=== PATIENT | male | born 1985 | race Caucasian/White ===

== ENCOUNTER 2023-07-25 01:22 | Inpatient (IN) ==
--- NOTE | 2023-07-25 01:38 | Emergency Department Note ---
Impression & Plan Swallowed foreign body, Elevated bilirubin ED Provider Note NAME: THOMAS [id number] MINNIE AGE: 38 SEX: M : 1985 ARRIVES VIA: Walk-In INFORMANT: Patient ED PROVIDER(S): Mayur Burris DO CHIEF COMPLAINT: swallowed battery HPI: Patient is a 38-year-old male who presents to the ER as he swallowed a e- cigarette battery prior to arrival around 10-11 o'clock tonight. He notes he does this when he is stressed out. He also swallowed several rocks. Denies any headache, change in vision, chest pain, shortness of breath, nausea vomiting or diarrhea. No dysuria, urgency, or frequency. No other exacerbating or remitting factors. Additional history obtained from officers who are present at bedside. ADDITIONAL HISTORY OBTAINED: Additional history obtained from officers who are present at bedside and note that this occurred around 11:00 Chronic Medical/Social Conditions Affecting Care: Per HPI PAST MEDICAL HISTORY:See Below PAST SURGICAL HISTORY:See Below FAMILY HISTORY:See Below SOCIAL HISTORY:See Below HOME MEDICATIONS:See Below ALLERGIES:See Below VITALS:See Below PHYSICAL EXAMINATION: GENERAL: Sitting up in bed, alert, well appearing, well nourished, no distress, non-toxic EYE EXAM: normal conjunctiva. OROPHARYNX: mucous membranes are moist NECK: supple, no nuchal rigidity, no adenopathy, non-tender LUNGS: Clear to auscultation. Normal chest wall mechanics HEART: no murmurs, S1 normal and S2 normal ABDOMEN: abdomen soft, non-tender, normo-active bowel sounds, no masses, no rebound or guarding. UPPER EXTREMITIES: upper extremities are grossly normal. LOWER EXTREMITIES: No pitting edema. NEURO EXAM: Normal sensorium, cranial nerves II-XII grossly intact, normal speech, no gross weakness of arms, no gross weakness of legs. MEDICAL DECISION MAKING: Patient is a 38-year-old male who presents the ER following swallowing a foreign body. IV was established blood work was obtained. Labs show no significant leukocytosis or anemia. BMP is unremarkable. T. bili slightly elevated 1.7. LFTs and lipase was unremarkable. KUB confirms for foreign bodies in the stomach. Discussed with Dr. Adams who recommended admission for EGD in the morning. Discussed with the guards and they were updated and discussed with the hospitalist Dr. Rios for admission. Consults/Care Managements Discussions: Per MDM Triage Nursing notes reviewed. Limited review of prior medical records performed Vital Signs: reviewed and remarkable for no significant abnormalities Differential diagnosis: Differential diagnoses includes but is not limited to gastritis, peptic ulcer disease, GERD, gallbladder disease, pancreatitis, small bowel obstruction, appendicitis, diverticulitis, hernia, urinary tract infection, torsion, perforation, trauma, infectious. ER treatment provided: See below Diagnostics interpreted by me include EKG and cardiac monitoring as listed below: -Cardiac Monitoring: An order was placed for continuous cardiac monitoring. The monitor shows a rate of 70 with sinus rhythm. -ECG: none -Laboratory studies:Interpreted by me as stated above in MDM and shown below. Imaging studies: Xrays: As interpreted by me: KUB per my interpretation shows several foreign bodies in the CTs show: none Procedures:none Critical Care: None Past Med/Surg History Problem List (Updated 07/25/23 @ 03:27 by Mayur Burris DO) Elevated bilirubin (Acute) Suicide attempt (Acute) Swallowed foreign body (Acute) Nasal foreign body (Acute) Social History Smoking Status: Unknown if ever smoked Preferred Language: Burmese Feels Safe at Home: Yes Allergies Allergies Allergy/AdvReac Type Severity Reaction Status Date / Time No Known Allergies Allergy Verified 07/04/23 00:28 Home Meds Home Medications Medication Instructions Recorded Confirmed Stelazine 1 dose PO UD 07/25/23 07/25/23 docusate sodium 100 mg capsule 100 mg PO DAILY 07/25/23 07/25/23 (Colace) lithium carbonate 1 dose PO UD 07/25/23 07/25/23 Results & Data (ED) Vital Signs Vital Signs - 24 hr 07/25/23 01:25 07/25/23 01:33 07/25/23 01:36 Temperature 36.4 C L Temperature Source Oral Pulse Rate 72 61 Pulse Rate [Apical] 60 Respiratory Rate 16 18 Respiratory Effort / Characteristics Non-Labored Respiratory Depth Normal Respiratory Pattern Regular Blood Pressure 130/91 Blood Pressure [Right Arm] 137/95 Blood Pressure Mean 104 Blood Pressure Mean [Right Arm] 109 Blood Pressure Position Sitting Pulse Oximetry 98 96 Oxygen Delivery Method Room Air Room Air Sepsis Recent Fever Within 48 Hours No Sepsis New/Unexplained Change in Mental Status No Sepsis Action Taken by Nursing No Action Required 07/25/23 02:35 Temperature Temperature Source Pulse Rate Pulse Rate [Apical] 52 L Respiratory Rate 18 Respiratory Effort / Characteristics Respiratory Depth Respiratory Pattern Blood Pressure Blood Pressure [Right Arm] 128/83 Blood Pressure Mean Blood Pressure Mean [Right Arm] 98 Blood Pressure Position Pulse Oximetry 96 Oxygen Delivery Method Room Air Sepsis Recent Fever Within 48 Hours Sepsis New/Unexplained Change in Mental Status Sepsis Action Taken by Nursing Laboratory Data 07/25/23 02:25 07/25/23 02:25 Lab Results 07/25/23 Range/Units 02:25 WBC 7.44 (4.8-10.8) K/ul RBC 4.87 (4.70-6.10) M/uL Hgb 15.5 (14.0-18.0) g/dl Hct 44.4 (42.0-52.0) % MCV 91.2 (80.0-100.0) fL MCH 31.8 (25.0-34.0) pg MCHC 34.9 (32.0-36.0) g/dL RDW Std Deviation 38.4 (36.4-46.3) fL RDW Coeff of Guillermo 11.5 (11.5-14.5) % Plt Count 160 (130-400) K/uL MPV 12.1 (9.4-12.4) fL Immature Gran % (Auto) 0.3 % Neut % (Auto) 69.3 % Lymph % (Auto) 22.4 % [place] % (Auto) 5.6 % Eos % (Auto) 1.9 % Baso % (Auto) 0.5 % Neut # (Auto) 5.15 (1.40-6.50) K/uL Lymph # (Auto) 1.67 (1.20-3.40) K/uL Cocke # (Auto) 0.42 (0.11-0.59) K/uL Eos # (Auto) 0.14 (0.00-0.50) K/uL Baso # (Auto) 0.04 (0.00-0.20) K/uL Immature Gran # (Auto) 0.02 (0.01-0.20) K/uL Sodium 138 (136-145) mmol/L Potassium 4.0 (3.5-5.1) mmol/L Chloride 104 (98-107) mmol/L Carbon Dioxide 28 (21-32) mmol/L Anion Gap 6 (3-11) BUN 16 (6-23) mg/dl Creatinine 0.89 (0.6-1.4) mg/dl Est Cr Clr Drug Dosing 146.9 ml/min Est GFR ( Amer) 126.6 ml/min Est GFR (Non-Af Amer) 109.2 ml/min BUN/Creatinine Ratio 18.0 (10-20) Glucose 94 (70-99(Fasting)) mg/dl Calcium 9.8 (8.6-10.3) mg/dl Total Bilirubin 1.7 H (0.2-1.0) mg/dl AST 18 (13-39) U/L ALT 11 (7-52) U/L Alkaline Phosphatase 67 (34-104) U/L Total Protein 7.4 (6.0-8.3) gm/dl Albumin 4.7 (3.4-5.0) gm/dl Globulin 2.7 (2.5-4.0) gm/dl Albumin/Globulin Ratio 1.7 (0.9-2) Lipase 41 (11-82) U/L Administered Medications Lactated Ringer's (Lr) 1,000 mls @ 80 mls/hr IV .[id number] ALMA Stop: 07/25/23 15:59 Last Admin: 07/25/23 03:44 Dose: 80 mls/hr Documented By: MAGNOLIA Discontinued Medications Pantoprazole Sodium 40 mg/ (Syringe) 10 mls @ 5 mls/min IV NOW ONE Stop: 07/25/23 03:31 Last Admin: 07/25/23 03:44 Dose: 5 mls/min Documented By: MAGNOLIA Discharge Plan Visit Data Chief Complaint: Foreign Body ED Provider: Mayur Burris Discharge Problem: Swallowed foreign body, Elevated bilirubin Forms Stand Alone Forms: My [facility] Prescriptions Prescriptions: No Action Stelazine 1 dose PO UD Rx Instructions: UNKNOWN STRENGTH docusate sodium [Colace] 100 mg Capsule 100 mg PO DAILY lithium carbonate 1 dose PO UD Rx Instructions: UNKNOWN DOSE AND DETAILS Referrals Referrals: Darren PELLETIER [Primary Care Provider] - Discharge Problem: Swallowed foreign body Qualifiers: Encounter type: initial encounter Qualified Code(s): T18.9XXA - Foreign body of alimentary tract, part unspecified, initial encounter
[2023-07-25 02:47] LABS: Basophils # (auto) 0.04 K/uL (0.00-0.20); Basophils % (auto) 0.5 %; Eosinophils # (auto) 0.14 K/uL (0.00-0.50); Eosinophils % (auto) 1.9 %; Hematocrit (blood only) 44.4 % (42.0-52.0); Hemoglobin 15.5 g/dl (14.0-18.0); Immature Granulocytes # (auto) 0.02 K/uL (0.01-0.20); Immature Granulocytes % (auto) 0.3 %; Lymphocytes # (auto) 1.67 K/uL (1.20-3.40); Lymphocytes % (auto) 22.4 %; Mean Corpuscular Hemoglobin 31.8 pg (25.0-34.0); Mean Corpuscular Hgb Conc 34.9 g/dL (32.0-36.0); Mean Corpuscular Volume 91.2 fL (80.0-100.0); Mean Platelet Volume 12.1 fL (9.4-12.4); Monocytes # (auto) 0.42 K/uL (0.11-0.59); Monocytes % (auto) 5.6 %; Neutrophils # (auto) 5.15 K/uL (1.40-6.50); Neutrophils % (auto) 69.3 %; Platelet Count 160 K/uL (130-400); RDW Coefficient of Variation 11.5 % (11.5-14.5); RDW Standard Deviation 38.4 fL (36.4-46.3); Red Blood Count 4.87 M/uL (4.70-6.10); White Blood Count 7.44 K/ul (4.8-10.8)
[2023-07-25 03:04] LABS: Albumin Globulin Ratio 1.7 (0.9-2); Albumin Level 4.7 gm/dl (3.4-5.0); Bilirubin,Total 1.7 mg/dl (0.2-1.0); Calcium 9.8 mg/dl (8.6-10.3); Creatinine Clr Calc Pharmacy 146.9 ml/min; Est GFR (African American) 126.6 ml/min; Est GFR (Non-African American) 109.2 ml/min; Globulin 2.7 gm/dl (2.5-4.0); Total Protein 7.4 gm/dl (6.0-8.3)
[2023-07-25] MEDS ORDERED: ONDANSETRON INJ 2 MG/ML 2 ML VIAL IV PRN ×2 (03:25→09:50)
[2023-07-25] MEDS ORDERED: ACETAMINOPHEN 1,000 MG/100 ML VIAL IV PRN (03:27)
--- NOTE | 2023-07-25 03:33 | History & Physical Report ---
Date of Service July 25, 2023 Assessment & Plan (1) Swallowed foreign body: Plan: The patient presents to the emergency department with complaint of having swallowed 4 lithium batteries at 11:30 PM few hours prior to arrival. His primary complaint is that of mild abdominal pain. NPO Pantoprazole 40 mg IV daily LR at 80 mL/h Zofran 4 mg IV every 6 hours as needed Tylenol 1 g IV every 8 hours as needed for mild pain or fever Consult to gastroenterology Psychiatric disturbance/suicide attempt history- Patient had stuffed a pin up his nose earlier this year He also underwent an endoscopy on 07/04/2023 for having swallowed pens on a string History of Present Illness Chief Complaint: The patient presents to the emergency department from [facility], with complaint of having swallowed 4 lithium batteries at around 11:00 this evening, with with mild abdominal discomfort at this time. He reports that in the past he had ingested pens, but has not this time Primary Care Provider: [facility] The patient is a 38-year-old male resident of [facility], with multiple ingestions earlier this year, including EGD on 07/04/2023 revealing to flex pens, strain, and deodorant and stomach. On 05/28/2023 he stopped a pen of his nose. He presents to the emergency department after having swallowed 4 batteries around 730 this evening. GI is asked that the patient be admitted to the medical service, for likely EGD in the a.m. Allergies Allergy/AdvReac Type Severity Reaction Status Date / Time No Known Allergies Allergy Verified 07/04/23 00:28 Home Medications Medication Instructions Recorded Confirmed Type Stelazine 1 dose PO UD 07/25/23 07/25/23 History docusate sodium 100 mg capsule 100 mg PO DAILY 07/25/23 07/25/23 History (Colace) lithium carbonate 1 dose PO UD 07/25/23 07/25/23 History Past Med/Surg History Problem List (Updated 07/25/23 @ 03:27 by Mayur Burris DO) Elevated bilirubin (Acute) Suicide attempt (Acute) Swallowed foreign body (Acute) Nasal foreign body (Acute) Social History Smoking Status: Current every day smoker Tobacco Type: E-cigarettes / Vaping Hx Alcohol Use: No Hx Substance Use: No Preferred Language: Anguillan Communication Ability: Effective Air Conditioning Engineer Required: No Beliefs That Will Affect Care: None Current Living Situation: Other Feels Safe at Home: Yes Review of Systems Review of Systems: The patient denies chest pain, palpitations, shortness of breath, dyspnea on exertion, cough, lower extremity swelling, sore throat, fevers, chills, sweats, nausea, vomiting, diarrhea , constipation, blood in urine or stool, dysuria, urinary frequency or urgency, lightheadedness, dizziness, loss of consciousness, rash, abnormal bruising or bleeding, imbalance, focal or generalized weakness, numbness or tingling in arms or legs, generalized arthralgias or myalgias, back or neck pain, or night sweats. The review of systems is otherwise negative other than for that already noted above, and at least 10 systems have been reviewed. Physical Exam Physical Exam: The patient is awake, alert and oriented 3, well developed and well nourished, normocephalic and atraumatic, lying in bed and in no acute distress. HEENT--PERRL, EOMI, mucous membranes and oropharynx dry. Neck--supple. No JVD. No bruits. Thyroid normal, trachea midline, no adenopathy. Heart--normal S1 and S2. No murmurs, rubs or gallops. Lungs--clear bilaterally, no respiratory distress, no accessory muscle use. Abdomen--normal bowel sounds and soft. Nontender. Nondistended, no hernias or masses, no organomegaly. Extremities--no cyanosis or clubbing. No edema. There are good distal pulses b/l. Dermatologic--normal skin turgor, normal color, no abnormal lymph nodes, no rash. Neurologic--cranial nerves II through XII grossly intact. Rheumatologic--normal range of motion. Psychiatric--normal affect. Results & Data Results & Data Vital Signs (Past 12 Hours) Vital Signs Temp Pulse Pulse Resp BP BP Pulse Ox 07/25/23 02:35 52 L 18 128/83 96 07/25/23 01:36 61 07/25/23 01:33 60 18 137/95 96 07/25/23 01:25 36.4 C L 72 16 130/91 98 O2 Del Method 07/25/23 02:35 Room Air 07/25/23 01:36 07/25/23 01:33 Room Air 07/25/23 01:25 Room Air Laboratory Results Laboratory Results WBC 7.44 K/ul (4.8-10.8) 07/25/23 02:25 RBC 4.87 M/uL (4.70-6.10) 07/25/23 02:25 Hgb 15.5 g/dl (14.0-18.0) 07/25/23 02:25 Hct 44.4 % (42.0-52.0) 07/25/23 02:25 MCV 91.2 fL (80.0-100.0) 07/25/23 02:25 MCH 31.8 pg (25.0-34.0) 07/25/23 02:25 MCHC 34.9 g/dL (32.0-36.0) 07/25/23 02:25 RDW Std Deviation 38.4 fL (36.4-46.3) 07/25/23 02:25 RDW Coeff of Guillermo 11.5 % (11.5-14.5) 07/25/23 02:25 Plt Count 160 K/uL (130-400) 07/25/23 02:25 MPV 12.1 fL (9.4-12.4) 07/25/23 02:25 Immature Gran % (Auto) 0.3 % 07/25/23 02:25 Neut % (Auto) 69.3 % 07/25/23 02:25 Lymph % (Auto) 22.4 % 07/25/23 02:25 [place] % (Auto) 5.6 % 07/25/23 02:25 Eos % (Auto) 1.9 % 07/25/23 02:25 Baso % (Auto) 0.5 % 07/25/23 02:25 Neut # (Auto) 5.15 K/uL (1.40-6.50) 07/25/23 02:25 Lymph # (Auto) 1.67 K/uL (1.20-3.40) 07/25/23 02:25 [place] # (Auto) 0.42 K/uL (0.11-0.59) 07/25/23 02:25 Eos # (Auto) 0.14 K/uL (0.00-0.50) 07/25/23 02:25 Baso # (Auto) 0.04 K/uL (0.00-0.20) 07/25/23 02:25 Immature Gran # (Auto) 0.02 K/uL (0.01-0.20) 07/25/23 02:25 Sodium 138 mmol/L (136-145) 07/25/23 02:25 Potassium 4.0 mmol/L (3.5-5.1) 07/25/23 02:25 Chloride 104 mmol/L (98-107) 07/25/23 02:25 Carbon Dioxide 28 mmol/L (21-32) 07/25/23 02:25 Anion Gap 6 (3-11) 07/25/23 02:25 BUN 16 mg/dl (6-23) 07/25/23 02:25 Creatinine 0.89 mg/dl (0.6-1.4) 07/25/23 02:25 Est Cr Clr Drug Dosing 146.9 ml/min 07/25/23 02:25 Est GFR ( Amer) 126.6 ml/min 07/25/23 02:25 Est GFR (Non-Af Amer) 109.2 ml/min 07/25/23 02:25 BUN/Creatinine Ratio 18.0 (10-20) 07/25/23 02:25 Glucose 94 mg/dl (70-99(Fasting)) 07/25/23 02:25 Calcium 9.8 mg/dl (8.6-10.3) 07/25/23 02:25 Total Bilirubin 1.7 mg/dl (0.2-1.0) H 07/25/23 02:25 AST 18 U/L (13-39) 07/25/23 02:25 ALT 11 U/L (7-52) 07/25/23 02:25 Alkaline Phosphatase 67 U/L (34-104) 07/25/23 02:25 Total Protein 7.4 gm/dl (6.0-8.3) 07/25/23 02:25 Albumin 4.7 gm/dl (3.4-5.0) 07/25/23 02:25 Globulin 2.7 gm/dl (2.5-4.0) 07/25/23 02:25 Albumin/Globulin Ratio 1.7 (0.9-2) 07/25/23 02:25 Lipase 41 U/L (11-82) 07/25/23 02:25 [place] 0.4 mmol/L (0.6-1.2) L 07/25/23 02:25 Code Status & VTE Plan Code Status Full code VTE Prophylaxis Plan VTE Prophylaxis will be ordered: Yes PG Care Time/CCT Total # of Minutes Spent Total Time Spent with Patient: Total time spent is greater than 50% in coordination of care (as documented) at patient's floor/unit and/or counseling patient: Coding Level of Care Code 27730 INT INP/OBS CARE 2/55MIN Diagnoses Swallowed foreign body T18.9XXA Encounter type: initial encounter (1) Swallowed foreign body Encounter type: initial encounter Qualified Code(s): T18.9XXA - Foreign body of alimentary tract, part unspecified, initial encounter
[2023-07-25] MEDS: LACTATED RINGER'S 1,000 ML IV SCH (03:44)
[2023-07-25] MEDS: PANTOprazole 40 MG in SYRINGE 0 ML IV ONE (03:44)
--- NOTE | 2023-07-25 07:32 | XRay Report ---
KUB CLINICAL HISTORY: Swallowed battery and stones COMPARISON STUDY: KUB July 12, 2023. FINDINGS: Four cylindrical metallic densities projecting over the upper abdomen measure up to 6.3 cm. A 1.5 cm density within the ascending colon is present. There is no evidence for a bowel obstruction . No evidence for free air on supine exam. IMPRESSION: 1. Four cylindrical metallic densities projecting over the upper abdomen consistent with ingested bat teries within the stomach. 2. Indeterminate 1.5 cm density within the ascending colon. 3. No evidence for a bowel obstruction. ACT 112: Negative or not required by law. Electronically signed by: Bandar Ibrahim M.D. 07/25/2023 7:31 AM
--- NOTE | 2023-07-25 09:19 | Gastrointestinal Consultation ---
Date of Consultation July 25, 2023 Assessment & Plan (1) Swallowed foreign body: Patient is a 38 y.o. male with a history of foreign body ingestion admitted after swallowing 4 lithium vape pen batteries approximately 10 hours ago. -Counseled patient on the dangers of ongoing foreign body ingestion including but not limited to bowel perforation and . -NPO. -Stat EGD by Dr. Sorto. -Further recommendations pending results of procedure. Supervising Physician Co-Signing Physician Notes Agree with PHOEBE Gong as above Interviewed and examined patient and agree with above Abd: Soft, NT, ND, +BS Continue current therapy and supportive care Proceed with EGD now History of Present Illness Reason for Consultation: Foreign body ingestion Requesting Physician: Dr. Kaiser Attending Physician: Mir Kaiser MD History of Present Illness Patient is a 38 y.o. incarcerated male with a history of foreign body ingestion of a spoon, string, 2 pens and deodorant s/p EGD for retrieval by Dr. Morales on 07/04/23. Last evening, he states he became very "stressed" and anxious and swallowed 4 rechargeable lithium vape pen batteries. States he swallows non-food items as a coping mechanism as he is not receiving adequate psychiatric management in half-way. The batteries were swallowed at approximately 11PM last evening. He currently denies any abdominal pain, nausea or other GI complaints. He is currently NPO. Allergies Allergy/AdvReac Type Severity Reaction Status Date / Time No Known Allergies Allergy Verified 07/04/23 00:28 Home Medications Medication Instructions Recorded Confirmed Type Stelazine 1 dose PO UD 07/25/23 07/25/23 History docusate sodium 100 mg capsule 100 mg PO DAILY 07/25/23 07/25/23 History (Colace) lithium carbonate 1 dose PO UD 07/25/23 07/25/23 History Patient History Medical History (Updated 07/25/23 @ 09:50 by Max Mendoza DO) Swallowed foreign body Social History Smoking Status: Current every day smoker Tobacco Type: E-cigarettes / Vaping Hx Alcohol Use: No Hx Substance Use: No Preferred Language: Greek Communication Ability: Effective Sustainability Consultant Required: No Beliefs That Will Affect Care: None Current Living Situation: Other Feels Safe at Home: Yes Review of Systems Constitutional: no fever and no chills Respiratory: no cough and no dyspnea Cardiovascular: no chest pain and no palpitations Gastrointestinal: as per Subjective / HPI Psychiatric: as per Subjective / HPI Physical Exam Constitutional: WD/WN, vitals as above Respiratory: normal respiratory effort, lungs clear to auscultation Cardiovascular: RRR, no murmur, no edema Gastrointestinal (Abdomen): normal bowel sounds, soft, nontender, no hepatosplenomegaly Psychiatric: A+Ox3, euthymic affect Results & Data Vital Signs (Past 12 Hours) Vital Signs Temp Pulse Pulse Pulse Resp BP BP 07/25/23 07:32 36.5 C 60 18 112/67 07/25/23 06:11 55 L 07/25/23 06:02 07/25/23 05:08 36.6 C 56 L 20 124/85 07/25/23 04:33 50 L 16 07/25/23 02:35 52 L 18 128/83 07/25/23 01:36 61 07/25/23 01:33 60 18 137/95 07/25/23 01:25 36.4 C L 72 16 130/91 Pulse Ox O2 Del Method 07/25/23 07:32 98 Room Air 07/25/23 06:11 07/25/23 06:02 Room Air 07/25/23 05:08 98 Room Air 07/25/23 04:33 98 Room Air 07/25/23 02:35 96 Room Air 07/25/23 01:36 07/25/23 01:33 96 Room Air 07/25/23 01:25 98 Room Air Diagnostic Findings Laboratory Results WBC 7.44 K/ul (4.8-10.8) 07/25/23 02:25 RBC 4.87 M/uL (4.70-6.10) 07/25/23 02:25 Hgb 15.5 g/dl (14.0-18.0) 07/25/23 02:25 Hct 44.4 % (42.0-52.0) 07/25/23 02:25 MCV 91.2 fL (80.0-100.0) 07/25/23 02:25 MCH 31.8 pg (25.0-34.0) 07/25/23 02:25 MCHC 34.9 g/dL (32.0-36.0) 07/25/23 02:25 RDW Std Deviation 38.4 fL (36.4-46.3) 07/25/23 02:25 RDW Coeff of Guillermo 11.5 % (11.5-14.5) 07/25/23 02:25 Plt Count 160 K/uL (130-400) 07/25/23 02:25 MPV 12.1 fL (9.4-12.4) 07/25/23 02:25 Immature Gran % (Auto) 0.3 % 07/25/23 02:25 Neut % (Auto) 69.3 % 07/25/23 02:25 Lymph % (Auto) 22.4 % 07/25/23 02:25 Wallace % (Auto) 5.6 % 07/25/23 02:25 Eos % (Auto) 1.9 % 07/25/23 02:25 Baso % (Auto) 0.5 % 07/25/23 02:25 Neut # (Auto) 5.15 K/uL (1.40-6.50) 07/25/23 02:25 Lymph # (Auto) 1.67 K/uL (1.20-3.40) 07/25/23 02:25 Wallace # (Auto) 0.42 K/uL (0.11-0.59) 07/25/23 02:25 Eos # (Auto) 0.14 K/uL (0.00-0.50) 07/25/23 02:25 Baso # (Auto) 0.04 K/uL (0.00-0.20) 07/25/23 02:25 Immature Gran # (Auto) 0.02 K/uL (0.01-0.20) 07/25/23 02:25 Sodium 138 mmol/L (136-145) 07/25/23 02:25 Potassium 4.0 mmol/L (3.5-5.1) 07/25/23 02:25 Chloride 104 mmol/L (98-107) 07/25/23 02:25 Carbon Dioxide 28 mmol/L (21-32) 07/25/23 02:25 Anion Gap 6 (3-11) 07/25/23 02:25 BUN 16 mg/dl (6-23) 07/25/23 02:25 Creatinine 0.89 mg/dl (0.6-1.4) 07/25/23 02:25 Est Cr Clr Drug Dosing 146.9 ml/min 07/25/23 02:25 Est GFR ( Amer) 126.6 ml/min 07/25/23 02:25 Est GFR (Non-Af Amer) 109.2 ml/min 07/25/23 02:25 BUN/Creatinine Ratio 18.0 (10-20) 07/25/23 02:25 Glucose 94 mg/dl (70-99(Fasting)) 07/25/23 02:25 Calcium 9.8 mg/dl (8.6-10.3) 07/25/23 02:25 Total Bilirubin 1.7 mg/dl (0.2-1.0) H 07/25/23 02:25 AST 18 U/L (13-39) 07/25/23 02:25 ALT 11 U/L (7-52) 07/25/23 02:25 Alkaline Phosphatase 67 U/L (34-104) 07/25/23 02:25 Total Protein 7.4 gm/dl (6.0-8.3) 07/25/23 02:25 Albumin 4.7 gm/dl (3.4-5.0) 07/25/23 02:25 Globulin 2.7 gm/dl (2.5-4.0) 07/25/23 02:25 Albumin/Globulin Ratio 1.7 (0.9-2) 07/25/23 02:25 Lipase 41 U/L (11-82) 07/25/23 02:25 Nasal Screen MRSA (PCR) Negative (Negative) 07/25/23 Unknown [place] 0.4 mmol/L (0.6-1.2) L 07/25/23 02:25 Impressions KUB X-Ray 07/25/23 01:35 KUB CLINICAL HISTORY: Swallowed battery and stones COMPARISON STUDY: KUB July 12, 2023. FINDINGS: Four cylindrical metallic densities projecting over the upper abdomen measure up to 6.3 cm. A 1.5 cm density within the ascending colon is present. There is no evidence for a bowel obstruction. No evidence for free air on supine exam. IMPRESSION: 1. Four cylindrical metallic densities projecting over the upper abdomen consistent with ingested batteries within the stomach. 2. Indeterminate 1.5 cm density within the ascending colon. 3. No evidence for a bowel obstruction. ACT 112: Negative or not required by law. Electronically signed by: Bandar Ibrahim M.D. 07/25/2023 7:31 AM PG Care Time/CCT Total # of Minutes Spent Total Time Spent with Patient: Total time spent is greater than 50% in coordination of care (as documented) at patient's floor/unit and/or counseling patient: Coding Level of Care Code 58439 OFFICE CONSULT LVL Diagnoses Swallowed foreign body T18.9XXA Encounter type: initial encounter (1) Swallowed foreign body Encounter type: initial encounter Qualified Code(s): T18.9XXA - Foreign body of alimentary tract, part unspecified, initial encounter
[2023-07-25] MEDS ORDERED: ROCURONIUM BROMIDE 10 MG/ML 5 ML VIAL IV ONE (09:44)
[2023-07-25] MEDS ORDERED: DEXAMETHASONE SOD INJ 4 MG/ML VIAL ONE (09:44)
[2023-07-25] MEDS ORDERED: GLYCOPYRROLATE 0.2 MG/ML VIAL ONE (09:44)
[2023-07-25] MEDS ORDERED: NEOSTIGMINE METHYLSULFATE 1 MG/ML 10ML VIAL ONE (09:44)
[2023-07-25] MEDS ORDERED: ONDANSETRON INJ 2 MG/ML 2 ML VIAL ONE (09:44)
[2023-07-25] MEDS ORDERED: PROPOFOL IV EMULSION 10 MG/ML 20 ML VIAL IV ONE (09:44)
[2023-07-25] MEDS ORDERED: LIDOCAINE 2% 2 ML VIAL/AMP(20MG/ML) INFIL ONE (09:44)
[2023-07-25] MEDS ORDERED: fentaNYL citrate PF 100 MCG/2 ML VIAL ONE (09:45)
[2023-07-25] MEDS ORDERED: MIDAZOLAM HCL 1 MG/ML 2ML VIAL ONE (09:45)
[2023-07-25] MEDS ORDERED: ePHEDrine sulfate 50 MG/ML AMP IV PRN (09:50)
[2023-07-25] MEDS ORDERED: fentaNYL citrate PF 100 MCG/2 ML VIAL IV PRN (09:50)
[2023-07-25] MEDS ORDERED: ATROPINE SULFATE 0.1 MG/ML 10ML SYR IV PRN (09:50)
--- NOTE | 2023-07-25 09:50 | Anesthesiology Consultation ---
Date of Service July 25, 2023 Assessment & Plan (1) Encounter for pre-operative examination: (2) Swallowed foreign body: Chart Review Chart Review: Patient NOT seen in Pre Admission Testing emerget procedure Consults Requested none History Surgery Operation Date: 07/25/23 09:10 Proposed Procedures p Esophagogastroduodenoscopy - Phillip Sorto DO Height/Weight Height: 6 ft 6 in Weight: 90.4 kg Allergies Allergy/AdvReac Type Severity Reaction Status Date / Time No Known Allergies Allergy Verified 07/04/23 00:28 Medications Home Medications Medication Instructions Recorded Confirmed Last Taken Stelazine 1 dose PO UD 07/25/23 07/25/23 Unknown docusate sodium 100 mg capsule 100 mg PO DAILY 07/25/23 07/25/23 Unknown (Colace) lithium carbonate 1 dose PO UD 07/25/23 07/25/23 Unknown Active Medications Generic Name Dose Route Start Last Admin Trade Name Freq PRN Reason Stop Dose Admin Lactated Ringer's 1,000 mls @ 80 mls/hr 07/25/23 03:30 07/25/23 03:44 Lr IV 07/25/23 15:59 80 mls/hr .[id number] ALMA Administration NPO Date Last Intake of Fluids: 07/24/23 Time Last Intake of Fluids: 12:00 Date Last Intake of Solids: 07/24/23 Time Last Intake of Solids: 12:00 Past Medical History Medical History (Updated 07/25/23 @ 09:50 by Max Mendoza, ) Swallowed foreign body Social History Smoking Status: Current every day smoker Hx Alcohol Use: No Hx Substance Use: No Physical Exam Vital Signs Last Vital Signs Temp 97.9 F 07/25/23 09:43 Pulse 53 L 07/25/23 09:43 Resp 18 07/25/23 09:43 BP 112/76 07/25/23 09:43 Pulse Ox 98 07/25/23 09:43 O2 Del Method Room Air 07/25/23 09:43 Testing Laboratory Results 07/25/23 02:25 07/25/23 02:25 (2) Swallowed foreign body Encounter type: initial encounter Qualified Code(s): T18.9XXA - Foreign body of alimentary tract, part unspecified, initial encounter
--- NOTE | 2023-07-25 11:21 | Psychiatric Consultation ---
Date of Consultation July 25, 2023 Impression / Recommendations Impression He should remain on suicide precautions with guards present pending return to the custodial on suicide watch/custodial safety protocols until evaluated by his treating clinicians there. He is not a candidate for inpatient psychiatric care as he is an inmate and any forensic referrals would be at the discretion of the custodial. We would not recommend restarting antidepressant medications or new medications when he is being monitored for changes in bowel patterns due to foreign bodies and due to lack of information regarding current treatment plans and approach by clinicians at [facility], what medications are available at [facility] and for which acute changes could be counter-therapeutic. Unfortunately prisoners ingest or self injure with items for a variety of reasons, many of which include secondary gain or attempts to manipulate their environment. It's counter-therapeutic to involve multiple psychiatric providers due to splitting. Hospitalist may reach out if specific questions regarding his care. Liaison remains available should an acute behavioral management issue arise while hospitalized (code garcía). Generally goals for management of ingestion of foreign bodies in individuals during incarceration include: -Minimizing reinforcement, treat medical concerns promptly will goals of returning to [facility] once medically stable (1) Swallowed foreign body: Encounter type: initial encounter Qualified Code(s): T18.9XXA - Foreign body of alimentary tract, part unspecified, initial encounter Plan Patient is an inmate at [facility] admitted for foreign body ingestion. Guards providing 1-on-1 at bedside and can return to [facility] on suicide precautions pending further evaluation there. Please reconsult if acute management issue. Psych History Identifying Data 38 yo man and inmate at [facility] admitted for foreign body ingestion of four batteries. Psychiatry consulted for foreign body ingestion. Chief Complaint "[]". History of Present Illness Patient ingested 4 batteries. History of prior self-harm/suicide attempts via ingestion. Per chart history of [place] use. Allergies Allergy/AdvReac Type Severity Reaction Status Date / Time No Known Allergies Allergy Verified 07/04/23 00:28 Home Medications Medication Instructions Recorded Confirmed Type Stelazine 1 dose PO UD 07/25/23 07/25/23 History docusate sodium 100 mg capsule 100 mg PO DAILY 07/25/23 07/25/23 History (Colace) lithium carbonate 1 dose PO UD 07/25/23 07/25/23 History Patient History Medical History (Updated 07/25/23 @ 09:50 by Max Mendoza DO) Swallowed foreign body Social History Smoking Status: Current every day smoker Tobacco Type: E-cigarettes / Vaping Hx Alcohol Use: No Hx Substance Use: No Preferred Language: Congolese Communication Ability: Effective Test Lead Application Testing Required: No Beliefs That Will Affect Care: None Current Living Situation: Other Feels Safe at Home: Yes Physical Exam Vital Signs (Past 24 Hours): Last Vital Signs Temp 36.6 C 07/25/23 09:43 Pulse 53 L 07/25/23 09:43 Resp 18 07/25/23 09:43 BP 112/76 07/25/23 09:43 Pulse Ox 98 07/25/23 09:43 O2 Del Method Room Air 07/25/23 09:43 Results & Data (PSY) Medications Administered Lactated Ringer's (Lr) 1,000 mls @ 80 mls/hr IV .[id number] ALMA Stop: 07/25/23 15:59 Last Admin: 07/25/23 03:44 Dose: 80 mls/hr Documented By: MAGNOLIA Coding Level of Care Code None Diagnoses Swallowed foreign body T18.9XXA Encounter type: initial encounter
--- NOTE | 2023-07-25 11:33 | XRay Report ---
KUB CLINICAL HISTORY: foreign body ingestion COMPARISON STUDY: KUB performed earlier today. FINDINGS: There is no evidence for a bowel obstruction. 4 cylindrical metallic radiodensities project over the abdomen. These measure 6.1 cm in length. One is now located within the right lower quadrant . An additional foreign bodies within the left mid abdomen. 2 adjacent foreign bodies within the left upper quadrant are present. IMPRESSION: Distal migration of the four ingested metallic foreign bodies consistent with batteries, now likely within small bowel. ACT 112: Negative or not required by law. Electronically signed by: Bandar Ibrahim M.D. 07/25/2023 11:31 AM
--- NOTE | 2023-07-25 12:01 | Anesthesiology Progress Note ---
Date of Service July 25, 2023 Anesthesia Post Procedure Vital Signs Vital Signs: Temp Pulse Pulse Pulse Resp BP BP 07/25/23 11:35 48 L 16 107/71 07/25/23 11:25 48 L 19 107/74 07/25/23 11:15 61 20 114/78 07/25/23 11:07 97.2 F L 61 16 113/76 07/25/23 09:43 97.9 F 53 L 18 112/76 07/25/23 07:32 97.7 F 60 18 112/67 07/25/23 07:00 51 L 07/25/23 06:11 55 L 07/25/23 06:02 07/25/23 05:08 97.9 F 56 L 20 124/85 07/25/23 04:33 50 L 16 07/25/23 02:35 52 L 18 128/83 07/25/23 01:36 61 07/25/23 01:33 60 18 137/95 07/25/23 01:25 97.5 F L 72 16 130/91 Pulse Ox O2 Del Method 07/25/23 11:35 97 Room Air 07/25/23 11:25 99 Room Air 07/25/23 11:15 100 Room Air 07/25/23 11:07 98 Room Air 07/25/23 09:43 98 Room Air 07/25/23 07:32 98 Room Air 07/25/23 07:00 07/25/23 06:11 07/25/23 06:02 Room Air 07/25/23 05:08 98 Room Air 07/25/23 04:33 98 Room Air 07/25/23 02:35 96 Room Air 07/25/23 01:36 07/25/23 01:33 96 Room Air 07/25/23 01:25 98 Room Air Transfer of Care Handoff Completed per policy Notes Mental Status: alert / awake / arousable and participated in evaluation Patient Amnestic to Procedure: Yes Nausea / Vomiting: adequately controlled Pain: adequately controlled Airway Patency, RR, SpO2: stable & adequate BP & HR: stable & adequate Hydration State: stable & adequate Anesthetic Complications: no major complications apparent and Pt Satisfied with anesthetic care
[2023-07-25] MEDS: PANTOprazole 40 MG in SYRINGE 0 ML IV SCH (12:06)
--- NOTE | 2023-07-25 12:13 | Hospitalist Progress Note ---
Date of Service July 25, 2023 Assessment & Plan (1) Swallowed foreign body: Plan: The patient presents to the emergency department with complaint of having swallowed 4 lithium batteries at 11:30 PM few hours prior to arrival. His primary complaint is that of mild abdominal pain. NPO Pantoprazole 40 mg IV daily LR at 80 mL/h Zofran 4 mg IV every 6 hours as needed Tylenol 1 g IV every 8 hours as needed for mild pain or fever Consult to gastroenterology Psychiatric disturbance/suicide attempt history- Patient had stuffed a pin up his nose earlier this year He also underwent an endoscopy on 07/04/2023 for having swallowed pens on a string 07/24 EGD no batteries found , colonoscopy in am (2) Bipolar 1 disorder, depressed, severe: Plan: on [place] , psych follows denies suicidal thoughts Admission and Anticipated Discharge Date Admission Date: July 25, 2023 Supervising Physician Co-Signing Physician Notes Agree with PHOEBE Gong as above Interviewed and examined patient and agree with above Abd: Soft, NT, ND, +BS Continue current therapy and supportive care Proceed with EGD now Subjective denies abdominal pain Review of Systems Review of Systems: The patient denies chest pain, palpitations, shortness of breath, dyspnea on exertion, cough, lower extremity swelling, sore throat, fevers, chills, sweats, nausea, vomiting, diarrhea , constipation, blood in urine or stool, dysuria, urinary frequency or urgency, lightheadedness, dizziness, loss of consciousness, rash, abnormal bruising or bleeding, imbalance, focal or generalized weakness, numbness or tingling in arms or legs, generalized arthralgias or myalgias, back or neck pain, or night sweats. The review of systems is otherwise negative other than for that already noted above, and at least 10 systems have been reviewed. Physical Exam Physical Exam: head atraumatic neck supple chest CTA heart S1S2 regular abdomen soft, nt, nd, bs present extremities no edema Results & Data Results & Data Vital Signs (Past 12 Hours) Vital Signs Temp Pulse Pulse Pulse Resp BP BP 07/25/23 11:35 48 L 16 107/71 07/25/23 11:25 48 L 19 107/74 07/25/23 11:15 61 20 114/78 07/25/23 11:07 36.2 C L 61 16 113/76 07/25/23 09:43 36.6 C 53 L 18 112/76 07/25/23 07:32 36.5 C 60 18 112/67 07/25/23 07:00 51 L 07/25/23 06:11 55 L 07/25/23 06:02 07/25/23 05:08 36.6 C 56 L 20 124/85 07/25/23 04:33 50 L 16 07/25/23 02:35 52 L 18 128/83 07/25/23 01:36 61 07/25/23 01:33 60 18 137/95 07/25/23 01:25 36.4 C L 72 16 130/91 Pulse Ox O2 Del Method 07/25/23 11:35 97 Room Air 07/25/23 11:25 99 Room Air 07/25/23 11:15 100 Room Air 07/25/23 11:07 98 Room Air 07/25/23 09:43 98 Room Air 07/25/23 07:32 98 Room Air 07/25/23 07:00 07/25/23 06:11 07/25/23 06:02 Room Air 07/25/23 05:08 98 Room Air 07/25/23 04:33 98 Room Air 07/25/23 02:35 96 Room Air 07/25/23 01:36 07/25/23 01:33 96 Room Air 07/25/23 01:25 98 Room Air Laboratory Results Abnormal lab results 07/25/23 Range/Units 02:25 Total Bilirubin 1.7 H (0.2-1.0) mg/dl [place] 0.4 L (0.6-1.2) mmol/L Diagnostic Findings KUB X-Ray 07/25/23 01:35 KUB CLINICAL HISTORY: Swallowed battery and stones COMPARISON STUDY: KUB July 12, 2023. FINDINGS: Four cylindrical metallic densities projecting over the upper abdomen measure up to 6.3 cm. A 1.5 cm density within the ascending colon is present. There is no evidence for a bowel obstruction. No evidence for free air on supine exam. IMPRESSION: 1. Four cylindrical metallic densities projecting over the upper abdomen consistent with ingested batteries within the stomach. 2. Indeterminate 1.5 cm density within the ascending colon. 3. No evidence for a bowel obstruction. ACT 112: Negative or not required by law. Electronically signed by: Bandar Ibrahim M.D. 07/25/2023 7:31 AM KUB X-Ray 07/25/23 10:59 KUB CLINICAL HISTORY: foreign body ingestion COMPARISON STUDY: KUB performed earlier today. FINDINGS: There is no evidence for a bowel obstruction. 4 cylindrical metallic radiodensities project over the abdomen. These measure 6.1 cm in length. One is now located within the right lower quadrant. An additional foreign bodies within the left mid abdomen. 2 adjacent foreign bodies within the left upper quadrant are present. IMPRESSION: Distal migration of the four ingested metallic foreign bodies consistent with batteries, now likely within small bowel. ACT 112: Negative or not required by law. Electronically signed by: Bandar Ibrahim M.D. 07/25/2023 11:31 AM PG Care Time/CCT Total # of Minutes Spent Total Time Spent with Patient: Total time spent is greater than 50% in coordination of care (as documented) at patient's floor/unit and/or counseling patient: Coding Level of Care Code 08399 SUB INP/OBS CARE 2/35MIN Diagnoses Swallowed foreign body T18.9XXA Encounter type: initial encounter Bipolar 1 disorder, depressed, severe F31.4 (1) Swallowed foreign body Encounter type: initial encounter Qualified Code(s): T18.9XXA - Foreign body of alimentary tract, part unspecified, initial encounter
--- NOTE | 2023-07-25 12:18 | Surgery Consultation ---
Date of Consultation July 25, 2023 Assessment & Plan (1) Swallowed foreign body: Plan 38 yo prisoner who swallowed 4 metallic vap pen batteries, unable to be retrieved by endoscopy . KUB showing objects likely in the small bowel. No obstruction. No surgical intervention required at this time. Will see if objects reach colon. clear liquids, miralax. Continue medical management Supervising Physician Co-Signing Physician Notes I have seen and examined the patient personally and agree with the above assessment and plan. In brief, this is a prisoner who swallowed for metallic vape pen batteries. By the time he underwent endoscopy, they had passed into the small intestine. KUB demonstrates objects in the small bowel. No obstructive features. On exam, he is soft, nontender, nondistended. No erika gical intervention is required at this time. Daily KUBs to see if these objects passed into the colon. If he develops any signs or symptoms of obstruction or abdominal extremis, he will require surgical intervention. We will continue to monitor for now. History of Present Illness Reason for Consultation: swallowed foreign body Requesting Physician: PHOEBE Gong Attending Physician: Mir Kaiser MD History of Present Illness Haider is a 38 year-old male prisoner of [employer] who presented to ED after ingesting 4 metallic vape batteries. Underwent EGD this morning which showed no foreign bodies in the stomach and repeat KUB showing objects likely in small bowel. Haider states he has been ingesting foreign bodies for years. Has been in [facility]. Last here in June for ingesting pen with string and deodorant . Some mild abdominal pain. asking for diet. No prior abdominal surgeries but was cut with razor blade in the RUQ. Allergies Allergy/AdvReac Type Severity Reaction Status Date / Time No Known Allergies Allergy Verified 07/04/23 00:28 Home Medications Medication Instructions Recorded Confirmed Type Stelazine 1 dose PO UD 07/25/23 07/25/23 History docusate sodium 100 mg capsule 100 mg PO DAILY 07/25/23 07/25/23 History (Colace) lithium carbonate 1 dose PO UD 07/25/23 07/25/23 History Patient History Social History Smoking Status: Current every day smoker Tobacco Type: E-cigarettes / Vaping Hx Alcohol Use: No Hx Substance Use: No Preferred Language: Belarusian Communication Ability: Effective Storm Sash Maker Required: No Beliefs That Will Affect Care: None Current Living Situation: Other Feels Safe at Home: Yes Physical Exam Constitutional: WD/WN, vitals as above cooperative and comfortable; no acute distress and not ill appearing Respiratory: normal respiratory effort; no respiratory distress Gastrointestinal (Abdomen): Inspection/Auscultation: abdomen normal to inspection; abdomen not distended and no abdominal surgical scar Percussion/Palpation: + abdomen tender (mild in RUQ) and abdomen soft; no guarding, abdomen not rigid and abdomen not firm scar in RUQ from razor blade Skin: no rashes, warm and dry Psychiatric: Orientation: alert and oriented x 3 Results & Data Vital Signs (Past 12 Hours) Vital Signs Temp Pulse Pulse Pulse Resp BP BP 07/25/23 11:35 48 L 16 107/71 07/25/23 11:25 48 L 19 107/74 07/25/23 11:15 61 20 114/78 07/25/23 11:07 36.2 C L 61 16 113/76 07/25/23 09:43 36.6 C 53 L 18 112/76 07/25/23 07:32 36.5 C 60 18 112/67 07/25/23 07:00 51 L 07/25/23 06:11 55 L 07/25/23 06:02 07/25/23 05:08 36.6 C 56 L 20 124/85 07/25/23 04:33 50 L 16 07/25/23 02:35 52 L 18 128/83 07/25/23 01:36 61 07/25/23 01:33 60 18 137/95 07/25/23 01:25 36.4 C L 72 16 130/91 Pulse Ox O2 Del Method 07/25/23 11:35 97 Room Air 07/25/23 11:25 99 Room Air 07/25/23 11:15 100 Room Air 07/25/23 11:07 98 Room Air 07/25/23 09:43 98 Room Air 07/25/23 07:32 98 Room Air 07/25/23 07:00 07/25/23 06:11 07/25/23 06:02 Room Air 07/25/23 05:08 98 Room Air 06/12/24 04:33 98 Room Air 07/25/23 02:35 96 Room Air 07/25/23 01:36 07/25/23 01:33 96 Room Air 07/25/23 01:25 98 Room Air Laboratory Results 07/25/23 07/25/23 Range/Units Unknown 02:25 WBC 7.44 (4.8-10.8) K/ul RBC 4.87 (4.70-6.10) M/uL Hgb 15.5 (14.0-18.0) g/dl Hct 44.4 (42.0-52.0) % MCV 91.2 (80.0-100.0) fL MCH 31.8 (25.0-34.0) pg MCHC 34.9 (32.0-36.0) g/dL RDW Std Deviation 38.4 (36.4-46.3) fL RDW Coeff of Guillermo 11.5 (11.5-14.5) % Plt Count 160 (130-400) K/uL MPV 12.1 (9.4-12.4) fL Immature Gran % (Auto) 0.3 % Neut % (Auto) 69.3 % Lymph % (Auto) 22.4 % [place] % (Auto) 5.6 % Eos % (Auto) 1.9 % Baso % (Auto) 0.5 % Neut # (Auto) 5.15 (1.40-6.50) K/uL Lymph # (Auto) 1.67 (1.20-3.40) K/uL [place] # (Auto) 0.42 (0.11-0.59) K/uL Eos # (Auto) 0.14 (0.00-0.50) K/uL Baso # (Auto) 0.04 (0.00-0.20) K/uL Immature Gran # (Auto) 0.02 (0.01-0.20) K/uL Sodium 138 (136-145) mmol/L Potassium 4.0 (3.5-5.1) mmol/L Chloride 104 (98-107) mmol/L Carbon Dioxide 28 (21-32) mmol/L Anion Gap 6 (3-11) BUN 16 (6-23) mg/dl Creatinine 0.89 (0.6-1.4) mg/dl Est Cr Clr Drug Dosing 146.9 ml/min Est GFR ( Amer) 126.6 ml/min Est GFR (Non-Af Amer) 109.2 ml/min BUN/Creatinine Ratio 18.0 (10-20) Glucose 94 (70-99(Fasting)) mg/dl Calcium 9.8 (8.6-10.3) mg/dl Total Bilirubin 1.7 H (0.2-1.0) mg/dl AST 18 (13-39) U/L ALT 11 (7-52) U/L Alkaline Phosphatase 67 (34-104) U/L Total Protein 7.4 (6.0-8.3) gm/dl Albumin 4.7 (3.4-5.0) gm/dl Globulin 2.7 (2.5-4.0) gm/dl Albumin/Globulin Ratio 1.7 (0.9-2) Lipase 41 (11-82) U/L Nasal Screen MRSA (PCR) Negative (Negative) [place] 0.4 L (0.6-1.2) mmol/L Diagnostic Findings KUB CLINICAL HISTORY: foreign body ingestion COMPARISON STUDY: KUB performed earlier today. FINDINGS: There is no evidence for a bowel obstruction. 4 cylindrical metallic radiodensities project over the abdomen. These measure 6.1 cm in length. One is now located within the right lower quadrant. An additional foreign bodies within the left mid abdomen. 2 adjacent foreign bodies within the left upper quadrant are present. IMPRESSION: Distal migration of the four ingested metallic foreign bodies consistent with batteries, now likely within small bowel. (1) Swallowed foreign body Encounter type: initial encounter Qualified Code(s): T18.9XXA - Foreign body of alimentary tract, part unspecified, initial encounter
[2023-07-25] MEDS: POLYETHYLENE (MIRALAX) 17 GM PACK PO SCH (13:20)
[2023-07-25] MEDS: TRIFLUOPERAZINE HCL 5 MG TABLET PO SCH (21:13)
[2023-07-25] MEDS: LITHIUM CARBONATE 300 MG TAB PO SCH (21:13)
[2023-07-26 07:56] LABS: Basophils # (auto) 0.02 K/uL (0.00-0.20); Basophils % (auto) 0.2 %; Eosinophils # (auto) 0.05 K/uL (0.00-0.50); Eosinophils % (auto) 0.6 %; Hematocrit (blood only) 43.3 % (42.0-52.0); Immature Granulocytes # (auto) 0.02 K/uL (0.01-0.20); Immature Granulocytes % (auto) 0.2 %; Lymphocytes % (auto) 20.1 %; Mean Corpuscular Hemoglobin 31.8 pg (25.0-34.0); Mean Corpuscular Hgb Conc 34.6 g/dL (32.0-36.0); Mean Corpuscular Volume 91.9 fL (80.0-100.0); Mean Platelet Volume 12.4 fL (9.4-12.4); Monocytes # (auto) 0.39 K/uL (0.11-0.59); Monocytes % (auto) 4.6 %; Neutrophils # (auto) 6.29 K/uL (1.40-6.50); Neutrophils % (auto) 74.3 %; Platelet Count 170 K/uL (130-400); RDW Coefficient of Variation 11.4 % (11.5-14.5); RDW Standard Deviation 38.7 fL (36.4-46.3); Red Blood Count 4.71 M/uL (4.70-6.10); White Blood Count 8.47 K/ul (4.8-10.8)
[2023-07-26 08:21] LABS: Albumin Globulin Ratio 1.6 (0.9-2); Albumin Level 4.2 gm/dl (3.4-5.0); BUN Creatinine Ratio 12.8 (10-20); Bilirubin,Total 2.6 mg/dl (0.2-1.0); Calcium 9.9 mg/dl (8.6-10.3); Creatinine Clr Calc Pharmacy 138.2 ml/min; Est GFR (African American) 119.6 ml/min; Est GFR (Non-African American) 103.2 ml/min; Globulin 2.7 gm/dl (2.5-4.0); Magnesium 1.8 mg/dl (1.7-2.4); Total Protein 6.9 gm/dl (6.0-8.3)
--- NOTE | 2023-07-26 10:43 | XRay Report ---
XR KUB/Abdomen 1 view CLINICAL HISTORY: Foreign bodies x 4 TECHNIQUE: 1 view of the abdomen was obtained. Comparison: Comparison is made to abdomen radiograph 07/25/2023 FINDINGS: 4 cylindrical radiodensities are seen in the ascending colon. The osseous structures are grossly unre markable. The bowel gas pattern is nonobstructive. A moderate amount of stool is noted within the lar ge bowel. IMPRESSION: Previously noted cylindrical metallic foreign bodies are now in the ascending colon. ACT 112: Negative or not required by law. Electronically signed by: Avery Garcia M.D. 07/26/2023 10:41 AM
--- NOTE | 2023-07-26 11:32 | Surgery Progress Note ---
Date of Service July 26, 2023 Assessment & Plan (1) Swallowed foreign body: Plan 38 yo prisoner who swallowed 4 metallic vap pen batteries, unable to be retrieved by endoscopy KUB today showing all 4 in ascending colon. No obstruction. No surgical intervention required as these are now in colon and will likely pass on their own. Can advance to low fiber diet, continue miralax. Admission and Anticipated Discharge Date Admission Date: July 25, 2023 Subjective feeling okay, mild abdominal pain no distention, no n,v passing gas and bowel movements hungry wants food Physical Exam Constitutional: WD/WN, vitals as above cooperative; no acute distress and not ill appearing Gastrointestinal (Abdomen): Inspection/Auscultation: abdomen normal to inspection; abdomen not distended Percussion/Palpation: abdomen soft; abdomen nontender, no guarding, abdomen not rigid and abdomen not firm Skin: no rashes, warm and dry Psychiatric: Orientation: alert and oriented x 3 Results & Data Vital Signs (Past 12 Hours) Vital Signs Temp Pulse Pulse Resp BP Pulse Ox O2 Del Method 07/26/23 07:56 59 L 07/26/23 07:53 36.5 C 46 L 16 109/68 97 Room Air 07/26/23 03:26 36.7 C 56 L 18 105/56 L 97 Room Air 07/25/23 23:50 65 Laboratory Results 07/26/23 Range/Units 07:33 WBC 8.47 (4.8-10.8) K/ul RBC 4.71 (4.70-6.10) M/uL Hgb 15.0 (14.0-18.0) g/dl Hct 43.3 (42.0-52.0) % MCV 91.9 (80.0-100.0) fL MCH 31.8 (25.0-34.0) pg MCHC 34.6 (32.0-36.0) g/dL RDW Std Deviation 38.7 (36.4-46.3) fL RDW Coeff of Guillermo 11.4 L (11.5-14.5) % Plt Count 170 (130-400) K/uL MPV 12.4 (9.4-12.4) fL Immature Gran % (Auto) 0.2 % Neut % (Auto) 74.3 % Lymph % (Auto) 20.1 % [place] % (Auto) 4.6 % Eos % (Auto) 0.6 % Baso % (Auto) 0.2 % Neut # (Auto) 6.29 (1.40-6.50) K/uL Lymph # (Auto) 1.70 (1.20-3.40) K/uL [place] # (Auto) 0.39 (0.11-0.59) K/uL Eos # (Auto) 0.05 (0.00-0.50) K/uL Baso # (Auto) 0.02 (0.00-0.20) K/uL Immature Gran # (Auto) 0.02 (0.01-0.20) K/uL Sodium 141 (136-145) mmol/L Potassium 4.0 (3.5-5.1) mmol/L Chloride 105 (98-107) mmol/L Carbon Dioxide 31 (21-32) mmol/L Anion Gap 5 (3-11) BUN 12 (6-23) mg/dl Creatinine 0.94 (0.6-1.4) mg/dl Est Cr Clr Drug Dosing 138.2 ml/min Est GFR ( Amer) 119.6 ml/min Est GFR (Non-Af Amer) 103.2 ml/min BUN/Creatinine Ratio 12.8 (10-20) Glucose 101 H (70-99(Fasting)) mg/dl Calcium 9.9 (8.6-10.3) mg/dl Magnesium 1.8 (1.7-2.4) mg/dl Total Bilirubin 2.6 H D (0.2-1.0) mg/dl AST 13 (13-39) U/L ALT 10 (7-52) U/L Alkaline Phosphatase 53 (34-104) U/L Total Protein 6.9 (6.0-8.3) gm/dl Albumin 4.2 (3.4-5.0) gm/dl Globulin 2.7 (2.5-4.0) gm/dl Albumin/Globulin Ratio 1.6 (0.9-2) [place] 0.3 L (0.6-1.2) mmol/L Diagnostic Findings XR KUB/Abdomen 1 view CLINICAL HISTORY: Foreign bodies x 4 TECHNIQUE: 1 view of the abdomen was obtained. Comparison: Comparison is made to abdomen radiograph 07/25/2023 FINDINGS: 4 cylindrical radiodensities are seen in the ascending colon. The osseous structures are grossly unremarkable. The bowel gas pattern is nonobstructive. A moderate amount of stool is noted within the large bowel. IMPRESSION: Previously noted cylindrical metallic foreign bodies are now in the ascending colon. (1) Swallowed foreign body Encounter type: initial encounter Qualified Code(s): T18.9XXA - Foreign body of alimentary tract, part unspecified, initial encounter
--- NOTE | 2023-07-26 12:15 | Hospitalist Progress Note ---
Date of Service July 26, 2023 Assessment & Plan (1) Swallowed foreign body: Plan: The patient presents to the emergency department with complaint of having swallowed 4 lithium batteries at 11:30 PM few hours prior to arrival. His primary complaint is that of mild abdominal pain. NPO Pantoprazole 40 mg IV daily LR at 80 mL/h Zofran 4 mg IV every 6 hours as needed Tylenol 1 g IV every 8 hours as needed for mild pain or fever Consult to gastroenterology Psychiatric disturbance/suicide attempt history- Patient had stuffed a pin up his nose earlier this year He also underwent an endoscopy on 07/04/2023 for having swallowed pens on a string 07/24 EGD no batteries found , on clear liquid diet 07/25 denies abdominal pain, series abdominal XR, GI follows (2) Bipolar 1 disorder, depressed, severe: Plan: on [place] , psych consulted denies suicidal thoughts Admission and Anticipated Discharge Date Admission Date: July 25, 2023 Subjective feeling okay, mild abdominal pain no distention, no n,v passing gas and bowel movements hungry wants food Review of Systems Review of Systems: The patient denies chest pain, palpitations, shortness of breath, dyspnea on exertion, cough, lower extremity swelling, sore throat, fevers, chills, sweats, nausea, vomiting, diarrhea , constipation, blood in urine or stool, dysuria, urinary frequency or urgency, lightheadedness, dizziness, loss of consciousness, rash, abnormal bruising or bleeding, imbalance, focal or generalized weakness, numbness or tingling in arms or legs, generalized arthralgias or myalgias, back or neck pain, or night sweats. The review of systems is otherwise negative other than for that already noted above, and at least 10 systems have been reviewed. Physical Exam Physical Exam: head atraumatic neck supple chest CTA heart S1S2 regular abdomen soft, nt, nd, bs present extremities no edema Results & Data Results & Data Vital Signs (Past 12 Hours) Vital Signs Temp Pulse Pulse Resp BP Pulse Ox O2 Del Method 07/26/23 11:51 36.8 C 52 L 16 105/64 99 Room Air 07/26/23 07:56 59 L 07/26/23 07:53 36.5 C 46 L 16 109/68 97 Room Air 07/26/23 03:26 36.7 C 56 L 18 105/56 L 97 Room Air PG Care Time/CCT Total # of Minutes Spent Total Time Spent with Patient: Total time spent is greater than 50% in coordination of care (as documented) at patient's floor/unit and/or counseling patient: Coding Level of Care Code 38509 SUB INP/OBS CARE 2/35MIN Diagnoses Swallowed foreign body T18.9XXA Encounter type: initial encounter Bipolar 1 disorder, depressed, severe F31.4 (1) Swallowed foreign body Encounter type: initial encounter Qualified Code(s): T18.9XXA - Foreign body of alimentary tract, part unspecified, initial encounter
--- NOTE | 2023-07-26 12:48 | GI REPORT ---
[facility] Patient: THOMAS HARTMAN : 1985 Sex at : Male Age: 38 Years Procedure: Upper GI endoscopy Date: 07/25/2023 Attending Physician: Phillip Sorto DO Referring MD: Darren La Indications: - Foreign body in the stomach Medications: - General Anesthesia Complications: - No immediate complications. Estimated Blood Loss: - Estimated blood loss: none. Procedure: - Prior to the procedure, a History and Physical was performed, and patient medications and allergies were reviewed. The patient's tolerance of previous anesthesia was also reviewed. The risks and benefits of the procedure and the sedation options and risks were discussed with the patient. All questions were answered, and informed consent was obtained. Prior Anticoagulants: The patient has taken no anticoagulant or antiplatelet agents. ASA Grade Assessment: E - Emergency. After reviewing the risks and benefits, the patient was deemed in satisfactory condition to undergo the procedure. - The egd scope was introduced through the mouth and advanced to the third part of the duodenum. - The upper GI endoscopy was accomplished without difficulty. - The patient tolerated the procedure well. Findings: - The examined esophagus was normal. - The entire examined stomach was normal. - The examined duodenum was normal. Impression: - Normal esophagus. - Normal stomach. - Normal examined duodenum. - No specimens collected. Recommendation: - [facility]. - NPO today. - Continue present medications. Check KUB now for further evaluation of location of foreign bodies Procedure Code(s): - 51803, Esophagogastroduodenoscopy, flexible, transoral; diagnostic, including collection of specimen(s) by brushing or washing, when performed (separate procedure) Diagnosis Code(s): - T18.2XXA, Foreign body in stomach, initial encounter CPT(R) - 3 copyright [employer]. All Rights Reserved. The CPT codes, CCI edits and ICD codes generated are intended as suggestions and were generated based on input data. These codes are preliminary and upon bonding machine operator review may be revised to meet current compliance and payer requirements. The provider is responsible for the final determination of appropriate codes, and modifiers. Dr. Phillip Sorto This document has been electronically signed. Note Initiated:07/25/2023 Note Completed:07/25/2023 11:[address] Phillip Sorto This document has been electronically signed. Note Amended:07/25/2023 11:14 AM [id number]
--- NOTE | 2023-07-26 17:52 | Electrocardiogram Report ---
Test Reason : Blood Pressure : / mmHG Vent. Rate : 130 BPM Atrial Rate : 130 BPM P-R Int : 136 ms QRS Dur : 098 ms QT Int : 318 ms P-R-T Axes : 048 013 035 degrees QTc Int : 467 ms Sinus tachycardia with frequent Premature ventricular complexes Nonspecific ST abnormality Abnormal ECG No previous ECGs available Confirmed by Curt Osman ([id number]) on 07/26/2023 5:52:14 PM Referred By: Darren SCI Confirmed By:Wisam Osman
[2023-07-26] MEDS ORDERED: MELATONIN 3 MG TAB PO PRN (23:22)
[2023-07-26] MEDS ORDERED: NICOTINE 14 MG/24 HR PATCH TD SCH (23:30)
[2023-07-27] MEDS: NICOTINE 14 MG/24 HR PATCH TD SCH (00:13)
[2023-07-27 06:51] LABS: Basophils # (auto) 0.02 K/uL (0.00-0.20); Basophils % (auto) 0.3 %; Eosinophils # (auto) 0.09 K/uL (0.00-0.50); Eosinophils % (auto) 1.5 %; Hematocrit (blood only) 44.4 % (42.0-52.0); Hemoglobin 15.4 g/dl (14.0-18.0); Immature Granulocytes # (auto) 0.01 K/uL (0.01-0.20); Immature Granulocytes % (auto) 0.2 %; Lymphocytes # (auto) 2.42 K/uL (1.20-3.40); Lymphocytes % (auto) 41.3 %; Mean Corpuscular Hemoglobin 31.8 pg (25.0-34.0); Mean Corpuscular Hgb Conc 34.7 g/dL (32.0-36.0); Mean Corpuscular Volume 91.5 fL (80.0-100.0); Mean Platelet Volume 11.8 fL (9.4-12.4); Monocytes # (auto) 0.31 K/uL (0.11-0.59); Monocytes % (auto) 5.3 %; Neutrophils # (auto) 3.01 K/uL (1.40-6.50); Neutrophils % (auto) 51.4 %; Platelet Count 152 K/uL (130-400); RDW Coefficient of Variation 11.4 % (11.5-14.5); RDW Standard Deviation 38.9 fL (36.4-46.3); Red Blood Count 4.85 M/uL (4.70-6.10); White Blood Count 5.86 K/ul (4.8-10.8)
[2023-07-27 07:14] LABS: Albumin Globulin Ratio 1.5 (0.9-2); BUN Creatinine Ratio 15.7 (10-20); Bilirubin,Total 2.1 mg/dl (0.2-1.0); Calcium 9.3 mg/dl (8.6-10.3); Creatinine Clr Calc Pharmacy 121.1 ml/min; Est GFR (African American) 101.1 ml/min; Est GFR (Non-African American) 87.2 ml/min; Globulin 2.7 gm/dl (2.5-4.0); Magnesium 1.9 mg/dl (1.7-2.4); Total Protein 6.7 gm/dl (6.0-8.3)
[2023-07-27] MEDS ORDERED: NICOTINE 14 MG/24 HR PATCH TD SCH (09:00)
--- NOTE | 2023-07-27 09:46 | XRay Report ---
KUB HISTORY: Foreign body ingestion foreign body x 4 f/u COMPARISON: 07/26/2023 FINDINGS: Nonobstructive bowel gas pattern. There are 4 cylindrical ingested cylindrical foreign bodi es measuring up to approximately 7 cm which project over the ascending and transverse colon, mildly p rogressed from yesterday's exam. There is moderate colonic fecal retention. Pelvic basin calcificatio ns again noted which are likely vascular in nature. No renal calculi. No ureteral calculi. No pneumop eritoneum or pneumatosis. No fracture. IMPRESSION: 1. The ingested foreign bodies now project over the ascending and transverse colon. 2. Nonobstructive bowel gas pattern. 3. Moderate colonic fecal retention. ACT 112: Negative or not required by law. The above report was generated using voice recognition software. It may contain grammatical, syntax o r spelling errors. Electronically signed by: Gerald Burr M.D. 07/27/2023 9:45 AM
--- NOTE | 2023-07-27 10:34 | Communication Note ---
Date of Service: July 27, 2023 Patient not examined, chart reviewed. KUB showing progression of foreign bodies, no obstruction. No surgical intervention required or recommended at this time. Continue Miralax , await passage of foreign bodies in stool. Our services signing off.
--- NOTE | 2023-07-27 15:41 | Hospitalist Progress Note ---
Date of Service July 27, 2023 Assessment & Plan (1) Swallowed foreign body: Plan: The patient presents to the emergency department with complaint of having swallowed 4 lithium batteries at 11:30 PM few hours prior to arrival. His primary complaint is that of mild abdominal pain. NPO Pantoprazole 40 mg IV daily LR at 80 mL/h Zofran 4 mg IV every 6 hours as needed Tylenol 1 g IV every 8 hours as needed for mild pain or fever Consult to gastroenterology Psychiatric disturbance/suicide attempt history- Patient had stuffed a pin up his nose earlier this year He also underwent an endoscopy on 07/04/2023 for having swallowed pens on a string 07/24 EGD no batteries found , on clear liquid diet 07/25 denies abdominal pain, series abdominal XR, GI follows 07/26 batteries still in the colon , continue laxatives (2) Bipolar 1 disorder, depressed, severe: Plan: on [place] , psych consulted denies suicidal thoughts Admission and Anticipated Discharge Date Admission Date: July 25, 2023 Subjective feeling okay, mild abdominal pain no distention, no n,v passing gas and bowel movements hungry Review of Systems Review of Systems: The patient denies chest pain, palpitations, shortness of breath, dyspnea on exertion, cough, lower extremity swelling, sore throat, fevers, chills, sweats, nausea, vomiting, diarrhea , constipation, blood in urine or stool, dysuria, urinary frequency or urgency, lightheadedness, dizziness, loss of consciousness, rash, abnormal bruising or bleeding, imbalance, focal or generalized weakness, numbness or tingling in arms or legs, generalized arthralgias or myalgias, back or neck pain, or night sweats. The review of systems is otherwise negative other than for that already noted above, and at least 10 systems have been reviewed. Physical Exam Physical Exam: head atraumatic neck supple chest CTA heart S1S2 regular abdomen soft, nt, nd, bs present extremities no edema Results & Data Results & Data Vital Signs (Past 12 Hours) Vital Signs Temp Pulse Pulse Resp BP Pulse Ox O2 Del Method 07/27/23 15:16 36.6 C 48 L 16 115/71 97 Room Air 07/27/23 11:56 36.8 C 63 16 116/75 97 Room Air 07/27/23 07:50 36.6 C 46 L 16 111/70 97 Room Air 07/27/23 07:20 57 L PG Care Time/CCT Total # of Minutes Spent Total Time Spent with Patient: Total time spent is greater than 50% in coordination of care (as documented) at patient's floor/unit and/or counseling patient: Coding Level of Care Code 46509 SUB INP/OBS CARE 2/35MIN Diagnoses Swallowed foreign body T18.9XXA Encounter type: initial encounter Bipolar 1 disorder, depressed, severe F31.4 (1) Swallowed foreign body Encounter type: initial encounter Qualified Code(s): T18.9XXA - Foreign body of alimentary tract, part unspecified, initial encounter
[2023-07-28 07:26] LABS: Hematocrit (blood only) 47.3 % (42.0-52.0); Hemoglobin 16.3 g/dl (14.0-18.0); Mean Corpuscular Hemoglobin 31.5 pg (25.0-34.0); Mean Corpuscular Hgb Conc 34.5 g/dL (32.0-36.0); Mean Corpuscular Volume 91.5 fL (80.0-100.0); Mean Platelet Volume 11.7 fL (9.4-12.4); Platelet Count 169 K/uL (130-400); RDW Coefficient of Variation 11.4 % (11.5-14.5); RDW Standard Deviation 38.7 fL (36.4-46.3); Red Blood Count 5.17 M/uL (4.70-6.10); White Blood Count 6.51 K/ul (4.8-10.8)
[2023-07-28 07:50] LABS: BUN Creatinine Ratio 16.7 (10-20); Calcium 9.4 mg/dl (8.6-10.3); Creatinine Clr Calc Pharmacy 136.2 ml/min; Est GFR (African American) 116.6 ml/min; Est GFR (Non-African American) 100.6 ml/min; Magnesium 2.1 mg/dl (1.7-2.4); Potassium 4.2 mmol/L (3.5-5.1)
--- NOTE | 2023-07-28 13:09 | XRay Report ---
KUB HISTORY: Foreign body ingestion foreign body COMPARISON: 07/27/2023 FINDINGS: Nonobstructive bowel gas pattern. On today's study there are 3 cylindrical ingested foreign bodies measuring up to 7 cm projecting over the rectosigmoid. The fourth body extremity flexure. No renal calculi. No ureteral calculi. No pneumoperitoneum or pneumatosis. No fracture. IMPRESSION: 1. 3 ingested foreign bodies now project over the rectosigmoid. 2. The fourth foreign body projects over the splenic flexure. 3. No free air. ACT 112: Negative or not required by law. The above report was generated using voice recognition software. It may contain grammatical, syntax o r spelling errors. Electronically signed by: Gerald Burr M.D. 07/28/2023 1:08 PM
[2023-07-28] MEDS: MAGNESIUM CITRATE 296 ML/BTL PO STA (14:51)
--- NOTE | 2023-07-28 16:10 | Hospitalist Progress Note ---
Date of Service July 28, 2023 Assessment & Plan (1) Swallowed foreign body: Plan: The patient presents to the emergency department with complaint of having swallowed 4 lithium batteries at 11:30 PM few hours prior to arrival. His primary complaint is that of mild abdominal pain. NPO Pantoprazole 40 mg IV daily LR at 80 mL/h Zofran 4 mg IV every 6 hours as needed Tylenol 1 g IV every 8 hours as needed for mild pain or fever Consult to gastroenterology Psychiatric disturbance/suicide attempt history- Patient had stuffed a pin up his nose earlier this year He also underwent an endoscopy on 07/04/2023 for having swallowed pens on a string 07/24 EGD no batteries found , on clear liquid diet 07/25 denies abdominal pain, series abdominal XR, GI follows 07/26 batteries still in the colon , continue laxatives 07/27 batteries still in the colon more laxatives prescribed (2) Bipolar 1 disorder, depressed, severe: Plan: on [place] , psych consulted denies suicidal thoughts Admission and Anticipated Discharge Date Admission Date: July 25, 2023 Subjective denies abdominal pain, moved bowels Review of Systems Review of Systems: The patient denies chest pain, palpitations, shortness of breath, dyspnea on exertion, cough, lower extremity swelling, sore throat, fevers, chills, sweats, nausea, vomiting, diarrhea , constipation, blood in urine or stool, dysuria, urinary frequency or urgency, lightheadedness, dizziness, loss of consciousness, rash, abnormal bruising or bleeding, imbalance, focal or generalized weakness, numbness or tingling in arms or legs, generalized arthralgias or myalgias, back or neck pain, or night sweats. The review of systems is otherwise negative other than for that already noted above, and at least 10 systems have been reviewed. Physical Exam Physical Exam: head atraumatic neck supple chest CTA heart S1S2 regular abdomen soft, nt, nd, bs present extremities no edema Results & Data Results & Data Vital Signs (Past 12 Hours) Vital Signs Temp Pulse Resp BP Pulse Ox O2 Del Method 07/28/23 15:47 36.6 C 66 18 120/74 97 Room Air 07/28/23 11:50 36.6 C 71 18 116/71 97 Room Air 07/28/23 07:42 36.8 C 60 18 112/77 98 Room Air PG Care Time/CCT Total # of Minutes Spent Total Time Spent with Patient: Total time spent is greater than 50% in coordination of care (as documented) at patient's floor/unit and/or counseling patient: Coding Level of Care Code 49824 SUB INP/OBS CARE 2/35MIN Diagnoses Swallowed foreign body T18.9XXA Encounter type: initial encounter Bipolar 1 disorder, depressed, severe F31.4 (1) Swallowed foreign body Encounter type: initial encounter Qualified Code(s): T18.9XXA - Foreign body of alimentary tract, part unspecified, initial encounter
--- NOTE | 2023-07-29 08:17 | XRay Report ---
KUB HISTORY: Foreign body ingestion foreign body COMPARISON: 07/28/2023 FINDINGS: Nonobstructive bowel gas pattern. On today's study there are 3 cylindrical ingested foreign bodies measuring up to 7 cm projecting over the rectum which have mildly progressed from yesterday's exam. The fourth portable body in projects over the splenic flexure. No renal calculi. No ureteral c alculi. No pneumoperitoneum or pneumatosis. No fracture. IMPRESSION: 1. Three ingested foreign bodies now project over the rectum. 2. The fourth foreign body again projects over the splenic flexure. 3. No free air. ACT 112: Negative or not required by law. The above report was generated using voice recognition software. It may contain grammatical, syntax o r spelling errors. Electronically signed by: Gerald Burr M.D. 07/29/2023 8:15 AM
--- NOTE | 2023-07-29 13:00 | Hospitalist Progress Note ---
Date of Service July 29, 2023 Assessment & Plan (1) Swallowed foreign body: Plan: The patient presents to the emergency department with complaint of having swallowed 4 lithium batteries at 11:30 PM few hours prior to arrival. His primary complaint is that of mild abdominal pain. NPO Pantoprazole 40 mg IV daily LR at 80 mL/h Zofran 4 mg IV every 6 hours as needed Tylenol 1 g IV every 8 hours as needed for mild pain or fever Consult to gastroenterology Psychiatric disturbance/suicide attempt history- Patient had stuffed a pin up his nose earlier this year He also underwent an endoscopy on 07/04/2023 for having swallowed pens on a string 07/24 EGD no batteries found , on clear liquid diet 07/25 denies abdominal pain, series abdominal XR, GI follows 07/26 batteries still in the colon , continue laxatives 07/27 batteries still in the colon more laxatives prescribed 07/28 he passed 3 batteries, denies abdominal pain (2) Bipolar 1 disorder, depressed, severe: Plan: on [place] , psych consulted denies suicidal thoughts Admission and Anticipated Discharge Date Admission Date: July 25, 2023 Subjective denies abdominal pain, 3 batteries out , one is still in the colon Review of Systems Review of Systems: The patient denies chest pain, palpitations, shortness of breath, dyspnea on exertion, cough, lower extremity swelling, sore throat, fevers, chills, sweats, nausea, vomiting, diarrhea , constipation, blood in urine or stool, dysuria, urinary frequency or urgency, lightheadedness, dizziness, loss of consciousness, rash, abnormal bruising or bleeding, imbalance, focal or generalized weakness, numbness or tingling in arms or legs, generalized arthralgias or myalgias, back or neck pain, or night sweats. The review of systems is otherwise negative other than for that already noted above, and at least 10 systems have been reviewed. Physical Exam Physical Exam: head atraumatic neck supple chest CTA heart S1S2 regular abdomen soft, nt, nd, bs present extremities no edema Results & Data Results & Data Vital Signs (Past 12 Hours) Vital Signs Temp Pulse Resp BP Pulse Ox O2 Del Method 07/29/23 11:32 37.0 C 68 16 126/78 97 Room Air 07/29/23 07:38 36.8 C 51 L 16 135/79 97 Room Air 07/29/23 02:58 36.8 C 75 18 123/74 96 Room Air PG Care Time/CCT Total # of Minutes Spent Total Time Spent with Patient: Total time spent is greater than 50% in coordination of care (as documented) at patient's floor/unit and/or counseling patient: Coding Level of Care Code 47090 SUB INP/OBS CARE 2/35MIN Diagnoses Swallowed foreign body T18.9XXA Encounter type: initial encounter Bipolar 1 disorder, depressed, severe F31.4 (1) Swallowed foreign body Encounter type: initial encounter Qualified Code(s): T18.9XXA - Foreign body of alimentary tract, part unspecified, initial encounter
[2023-07-29] MEDS: MAGNESIUM CITRATE 296 ML/BTL PO STA (17:28)
[2023-07-30 08:31] LABS: BUN Creatinine Ratio 22.1 (10-20); Calcium 9.5 mg/dl (8.6-10.3); Creatinine Clr Calc Pharmacy 125.7 ml/min; Est GFR (African American) 105.8 ml/min; Est GFR (Non-African American) 91.3 ml/min; Potassium 4.3 mmol/L (3.5-5.1)
--- NOTE | 2023-07-30 09:40 | XRay Report ---
KUB HISTORY: Foreign body ingestion foreign body COMPARISON: 07/29/2023 FINDINGS: Nonobstructive bowel gas pattern. On today's study there is only 1 residual ingested foreig n body within the rectum. The other 3 foci are no longer present. Unchanged pelvic calcifications. N o renal calculi. No ureteral calculi. No pneumoperitoneum or pneumatosis. No fracture. IMPRESSION: 1. Nonobstructive bowel gas pattern without free air. 2. Only one residual foreign body is present within the rectum. ACT 112: Negative or not required by law. The above report was generated using voice recognition software. It may contain grammatical, syntax o r spelling errors. Electronically signed by: Gerald Burr M.D. 07/30/2023 9:38 AM
--- NOTE | 2023-07-30 12:05 | Discharge Summary ---
Discharge Summary Date of Service July 30, 2023 Principal Dx & Hospital Course #1 = Principal Diagnosis (1) Swallowed foreign body: The patient presents to the emergency department with complaint of having swallowed 4 lithium batteries at few hours prior to arrival. His primary complaint is that of mild abdominal pain. - not his first incident on intentional ingestions Consult to gastroenterology - s/p EGD on 07/24 with no batteries found Treated with laxatives 07/28 he passed 3 batteries, denies abdominal pain 07/29 passed the last battery Stable to [facility] the [facility] today. (2) Bipolar 1 disorder, depressed, severe: on [place] , psych consulted - recommend continued follow up with physciatric providers within the [facility] system denies suicidal thoughts Plan Dispo - discharged back to [facility] today Notes For Next Care Provider passed all 4 batteries without incident. RN also reporting tape in stool Medication Changes From Visit none Admission HPI Per Admitting Provider The patient is a 38-year-old male resident of [facility], with multiple ingestions earlier this year, including EGD on 07/04/2023 revealing to flex pens, strain, and deodorant and stomach. On 05/28/2023 he stopped a pen of his nose. He presents to the emergency department after having swallowed 4 batteries around 730 this evening. GI is asked that the patient be admitted to the medical service, for likely EGD in the a.m. Discharge Exam General: NAD, VS as above Resp: normal respiratory effort, lungs clear to auscultation CV: RRR, no murmur, Abd: soft, non tender, no hepatosplenomegaly Extremities: Moves all extremities Updated Medication List Medication Instructions Recorded Confirmed Type Stelazine 1 dose PO UD 07/25/23 07/25/23 History docusate sodium 100 mg capsule 100 mg PO DAILY 07/25/23 07/25/23 History (Colace) lithium carbonate 1 dose PO UD 07/25/23 07/25/23 History Hospital Stay Data Consultations 07/25/23 02:32 ED Decision to Admit Stat 07/25/23 03:28 Consult Gastroenterology Routine 07/25/23 11:53 Consult General Surgery Routine Procedures Performed Operation Date: 07/25/23 09:10 Actual Procedures p Esophagogastroduodenoscopy - Phillip Jha Case, DO Diagnostic Imagining Performed KUB X-Ray 07/25/23 01:35 KUB CLINICAL HISTORY: Swallowed battery and stones COMPARISON STUDY: KUB July 12, 2023. FINDINGS: Four cylindrical metallic densities projecting over the upper abdomen measure up to 6.3 cm. A 1.5 cm density within the ascending colon is present. There is no evidence for a bowel obstruction. No evidence for free air on supine exam. IMPRESSION: 1. Four cylindrical metallic densities projecting over the upper abdomen consistent with ingested batteries within the stomach. 2. Indeterminate 1.5 cm density within the ascending colon. 3. No evidence for a bowel obstruction. ACT 112: Negative or not required by law. Electronically signed by: Bandar Ibrahim M.D. 07/25/2023 7:31 AM KUB X-Ray 07/25/23 10:59 KUB CLINICAL HISTORY: foreign body ingestion COMPARISON STUDY: KUB performed earlier today. FINDINGS: There is no evidence for a bowel obstruction. 4 cylindrical metallic radiodensities project over the abdomen. These measure 6.1 cm in length. One is now located within the right lower quadrant. An additional foreign bodies within the left mid abdomen. 2 adjacent foreign bodies within the left upper quadrant are present. IMPRESSION: Distal migration of the four ingested metallic foreign bodies consistent with batteries, now likely within small bowel. ACT 112: Negative or not required by law. Electronically signed by: Bandar Ibrahim M.D. 07/25/2023 11:31 AM KUB X-Ray 07/26/23 07:00 XR KUB/Abdomen 1 view CLINICAL HISTORY: Foreign bodies x 4 TECHNIQUE: 1 view of the abdomen was obtained. Comparison: Comparison is made to abdomen radiograph 07/25/2023 FINDINGS: 4 cylindrical radiodensities are seen in the ascending colon. The osseous structures are grossly unremarkable. The bowel gas pattern is nonobstructive. A moderate amount of stool is noted within the large bowel. IMPRESSION: Previously noted cylindrical metallic foreign bodies are now in the ascending colon. ACT 112: Negative or not required by law. Electronically signed by: Avery Garcia M.D. 07/26/2023 10:41 AM KUB X-Ray 07/27/23 08:05 KUB HISTORY: Foreign body ingestion foreign body x 4 f/u COMPARISON: 07/26/2023 FINDINGS: Nonobstructive bowel gas pattern. There are 4 cylindrical ingested cylindrical foreign bodies measuring up to approximately 7 cm which project over the ascending and transverse colon, mildly progressed from yesterday's exam. There is moderate colonic fecal retention. Pelvic basin calcifications again noted which are likely vascular in nature. No renal calculi. No ureteral calculi. No pneumoperitoneum or pneumatosis. No fracture. IMPRESSION: 1. The ingested foreign bodies now project over the ascending and transverse colon. 2. Nonobstructive bowel gas pattern. 3. Moderate colonic fecal retention. ACT 112: Negative or not required by law. The above report was generated using voice recognition software. It may contain grammatical, syntax or spelling errors. Electronically signed by: Gerald Burr M.D. 07/27/2023 9:45 AM KUB X-Ray 07/28/23 12:37 KUB HISTORY: Foreign body ingestion foreign body COMPARISON: 07/27/2023 FINDINGS: Nonobstructive bowel gas pattern. On today's study there are 3 cylindrical ingested foreign bodies measuring up to 7 cm projecting over the rectosigmoid. The fourth body extremity flexure. No renal calculi. No ureteral calculi. No pneumoperitoneum or pneumatosis. No fracture. IMPRESSION: 1. 3 ingested foreign bodies now project over the rectosigmoid. 2. The fourth foreign body projects over the splenic flexure. 3. No free air. ACT 112: Negative or not required by law. The above report was generated using voice recognition software. It may contain grammatical, syntax or spelling errors. Electronically signed by: Gerald Burr M.D. 07/28/2023 1:08 PM KUB X-Ray 07/29/23 07:48 KUB HISTORY: Foreign body ingestion foreign body COMPARISON: 07/28/2023 FINDINGS: Nonobstructive bowel gas pattern. On today's study there are 3 cylindrical ingested foreign bodies measuring up to 7 cm projecting over the rectum which have mildly progressed from yesterday's exam. The fourth portable body in projects over the splenic flexure. No renal calculi. No ureteral calculi. No pneumoperitoneum or pneumatosis. No fracture. IMPRESSION: 1. Three ingested foreign bodies now project over the rectum. 2. The fourth foreign body again projects over the splenic flexure. 3. No free air. ACT 112: Negative or not required by law. The above report was generated using voice recognition software. It may contain grammatical, syntax or spelling errors. Electronically signed by: Gerald Burr M.D. 07/29/2023 8:15 AM KUB X-Ray 07/30/23 08:27 KUB HISTORY: Foreign body ingestion foreign body COMPARISON: 07/29/2023 FINDINGS: Nonobstructive bowel gas pattern. On today's study there is only 1 residual ingested foreign body within the rectum. The other 3 foci are no longer present. Unchanged pelvic calcifications. No renal calculi. No ureteral calculi. No pneumoperitoneum or pneumatosis. No fracture. IMPRESSION: 1. Nonobstructive bowel gas pattern without free air. 2. Only one residual foreign body is present within the rectum. ACT 112: Negative or not required by law. The above report was generated using voice recognition software. It may contain grammatical, syntax or spelling errors. Electronically signed by: Gerald Burr M.D. 07/30/2023 9:38 AM Pending Results Patient Have Any Pending Studies at Discharge: No Discharge Instructions Given to Patient (Per Discharging Provider) Mr. Russell, You were hospitalized after ingestion of batteries. Thankfully these have passed without issue. You should continue follow up with the providers at the [facility] regarding your mental health. No changes were made to your home medications. Total Time Total Time Spent Total Time Spent (In Minutes): Time spend day of discharge 32 minutes including direct patient care, medication reconciliation, documentation, review of labs and images, and coordination of care. Supervising Physician Co-Signing Physician Notes JACKELIN Supervision Note: I personally saw and examined the patient. I verified all wilson points and agree with JACKELIN Cerda with the following exceptions and/or additions: S-Pt denies abd pain, has passed all 4 batteries seen on previous imaging. No other concerns O- Vitals reviewed Gen: [AAOx3, NAD] HEENT: [anicteric sclerae, EOMI] Reviewed KUB image personally A/P-38 yo male here with intentional ingestion of batteries, likely for secondary gain of being able to leave the [facility]. This was not a suicidal attempt, appreciate Psych consult. Stable for dc back to [facility] Coding Level of Care Code 42134 INP/OBS DISCH >30 MIN Diagnoses Swallowed foreign body T18.9XXA Encounter type: initial encounter Bipolar 1 disorder, depressed, severe F31.4
== END 2023-07-30 16:50 | DRG 394 ==
LOC: ED 01:22 → SUATTDRO 03:32 → 2W 03:32